=== PATIENT | male | born 1970 | race Caucasian/White ===

== ENCOUNTER 2019-03-13 08:44 | Emergency (ER) | payer BC, OTHER ==
[~2019-03-13] VITALS: Ht 165.1 cm; Wt 95.0 kg
[2019-03-13 08:52] VITALS: BP 177/109
== END 2019-03-13 12:21 | disposition home or self-care (01) ==
LOC: ED 12:12
DX: S46.811A Strain of other muscles, fascia and tendons at shoulder and upper arm level, right arm, initial encounter (principal); X58.XXXA Exposure to other specified factors, initial encounter; Y93.89 Activity, other specified; Y92.009 Unspecified place in unspecified non-institutional (private) residence as the place of occurrence of the external cause; Y99.8 Other external cause status
CPT/HCPCS: 99284